=== PATIENT | male | born 2000 | race Two or more races ===

== ENCOUNTER 2024-05-14 00:37 | Emergency (ER) | payer OTHER ==
[~2024-05-14] VITALS: Ht 182.9 cm; Wt 95.3 kg
[~2024-05-14 00:37] MED LIST: BENADRYL25 MG PO; MEDROL8 MG PO; PEPCID40 MG PO
[2024-05-14] MEDS ORDERED: ORPHENADRINE CITRATE 30 MG/ML AMPUL IM STA (03:27)
[2024-05-14] MEDS ORDERED: KETOROLAC TROMETHAMINE 60 MG VIAL IM STA (03:28)
[2024-05-14] MEDS ORDERED: KETOROLAC TROMETHAMINE 60 MG VIAL IM ONE (03:31)
[2024-05-14] MEDS ORDERED: ORPHENADRINE CITRATE 30 MG/ML AMPUL ONE (03:31)
[2024-05-14] MEDS ORDERED: NORFLEX100MG PO (04:11)
[2024-05-14] MEDS ORDERED: KETO10TA2 PO (04:11)
== END 2024-05-14 04:27 ==
LOC: ER 00:38
DX: M54.50 Low back pain, unspecified (principal); M25.521 Pain in right elbow

== ENCOUNTER 2024-08-22 03:00 | Outpatient (CLI) | payer OTHER ==
[~2024-08-22 03:00] MED LIST changes: +KETO10TA2 PO; +NORFLEX100MG PO
== END 2024-08-22 03:15 | disposition home or self-care (01) ==
LOC: PPH VACUNA 03:00
PROVIDERS: ATTEND Emergency Medicine Pediatric Emergency Medicine
DX: Z23 Encounter for immunization (principal)